=== PATIENT | female | born 1960 | race Caucasian/White ===

== ENCOUNTER 2017-08-18 19:05 | Emergency (ER) | payer OTHER ==
[~2017-08-18] VITALS: Ht 167.6 cm; Wt 88.5 kg
[~2017-08-18 19:05] MED LIST: ALBU.083IS IH; ALBU90OI INH; ALBU90OI6 INH; AMOX500 PO; CEPH500 PO; CODGUAEL PO; CYCL10; CYCL10 PO; Crutch1 EACH MISC; DIVA500EC PO; DULERA; ESCI20 PO; FLUT110OIA IH; HYDACE5 PO; HYDACE5325 PO; IBUP400 PO; IBUP600 PO; LAVAP17G PO; LEVSOD150; LEVSOD150 PO; LORA1 PO; MORP15ER PO; MORP30ER PO; MORP60ER PO; Norco 5-325 Ta1 EACH PO; OMEP10ER PO; OMEP20ER PO; OXYACE5T PO; OXYC10ER PO; OXYC5 PO; PRED10 PO; PRED20 PO; Percocet 5-3251 EACH PO; Prilosec Otc20 MG PO; SERT50 PO; TRIA80TC TOP; VENL25 PO; VENL75ER PO; ZOLP10 PO
[2017-08-18] MEDS ORDERED: ALBU2.5V5 NEB (19:39)
[2017-08-18 19:47] LABS: BASOPHILS ABSOLUTE AUTO 0.06 K/mm3 (0.00-0.23); BASOPHILS PERCENT AUTO 1 % (0-2); EOSINOPHILS ABSOLUTE AUTO 0.08 K/mm3 (0.00-0.68); EOSINOPHILS PERCENT AUTO 2 % (0-6); Hematocrit 42.2 % (33.0-51.0); Hemoglobin 14.6 g/dL (11.5-16.0); IMMATURE GRAN ABSOLUTE AUTO 0.01 K/mm3 (0.00-0.10); IMMATURE GRAN PERCENT AUTO 0 % (0-1); LYMPHOCYTES ABSOLUTE AUTO 1.46 K/mm3 (0.84-5.20); LYMPHOCYTES PERCENT AUTO 28 % (21-46); MONOCYTES ABSOLUTE AUTO 0.41 K/mm3 (0.16-1.47); MONOCYTES PERCENT AUTO 8 % (4-13); Mean Corpuscular HGB 29.4 pg (26.0-34.0); Mean Corpuscular HGB Conc 34.6 g/dL (31.5-36.5); Mean Corpuscular Volume 85 fL (80-100); Mean Platelet Volume 10.1 fL (9.1-12.4); NEUTROPHILS ABSOLUTE AUTO 3.29 K/mm3 (1.96-9.15); NEUTROPHILS PERCENT AUTO 62 % (41-73); Platelet Count 263 K/mm3 (150-400); RDW Coefficient Variation 11.9 % (11.7-14.2); RDW Standard Deviation 36.7 fL (35.1-46.3); Red Blood Cell Count 4.97 M/mm3 (3.80-5.20); White Blood Cell Count 5.31 K/mm3 (4.00-11.30)
[2017-08-18 20:00] LABS: International Normalized Ratio 0.99; Prothrombin Time Results 10.3 Sec (9.7-11.5)
[2017-08-18 20:16] LABS: Alanine Aminotransfer (ALT/SGP 36 U/L (12-78); Albumin, Blood 3.9 g/dL (3.4-5.0); Alk Phos 107 U/L (50-136); Anion Gap 7 mmol/L (6-16); Aspartate Aminotrans (AST/SGOT 28 U/L (12-37); Bilirubin, Total 0.6 mg/dL (0.1-1.0); Blood Urea Nitrogen 12 mg/dL (8-24); Bun/Creatinine Ratio 13.5 (12.0-20.0); CO2, Blood 29 mmol/L (21-32); Calcium, Blood 8.8 mg/dL (8.5-10.1); Chloride, Blood 101 mmol/L (98-108); Creatinine, Blood 0.89 mg/dL (0.40-1.00); Globulin, Blood 3.8 g/dL (2.2-4.0); Glomerular Filtration Rate >60 (60-); Glucose, Blood 100 mg/dL (70-99); Potassium, Blood 3.6 mmol/L (3.5-5.5); Sodium, Blood 137 mmol/L (136-145); Total Protein, Blood 7.7 g/dL (6.4-8.2)
[2017-08-18 20:26] LABS: Influenza A Negative (NEGATIVE); Influenza B Negative (NEGATIVE)
[2017-08-18] MEDS ORDERED: ROBITUSSIN COU237 ML PO (21:11)
[2017-08-18] MEDS ORDERED: LEVO750 PO (21:11)
== END 2017-08-18 21:28 | disposition home or self-care (01) ==
LOC: ER 19:05
PROVIDERS: Physician Assistant
DX: J20.9 Acute bronchitis, unspecified (principal); R07.89 Other chest pain; Z88.2 Allergy status to sulfonamides; Z88.1 Allergy status to other antibiotic agents; Z79.899 Other long term (current) drug therapy; Z79.891 Long term (current) use of opiate analgesic; J44.9 Chronic obstructive pulmonary disease, unspecified; K21.9 Gastro-esophageal reflux disease without esophagitis; F17.200 Nicotine dependence, unspecified, uncomplicated
CPT/HCPCS: 36415; 71046; 80053; 83605; 85025; 85610; 85730; 87040; 87804; 93005; 93010; 96374; 99284; J0456; J1885; J7050

== ENCOUNTER 2017-08-26 07:36 | Emergency (ER) | payer OTHER ==
[~2017-08-26] VITALS: Ht 167.6 cm; Wt 88.5 kg
[~2017-08-26 07:36] MED LIST changes: +ALBU2.5V5 NEB; +LEVO750 PO; +ROBITUSSIN COU237 ML PO
[2017-08-26] MEDS ORDERED: METO50ER PO (08:09)
[2017-08-26] MEDS ORDERED: ATOR10 PO (08:09)
[2017-08-26] MEDS ORDERED: KETO10 PO (10:34)
== END 2017-08-26 10:54 | disposition home or self-care (01) ==
LOC: ER 07:36
DX: S22.20XA Unspecified fracture of sternum, initial encounter for closed fracture (principal); W01.0XXA Fall on same level from slipping, tripping and stumbling without subsequent striking against object, initial encounter; Z88.2 Allergy status to sulfonamides; Z88.1 Allergy status to other antibiotic agents; Z79.899 Other long term (current) drug therapy; Z79.891 Long term (current) use of opiate analgesic; J45.909 Unspecified asthma, uncomplicated; J44.9 Chronic obstructive pulmonary disease, unspecified; K21.9 Gastro-esophageal reflux disease without esophagitis; F17.200 Nicotine dependence, unspecified, uncomplicated
CPT/HCPCS: 36415; 71250; 96374; 96375; 96376; 99284; J1885; J3010

== ENCOUNTER 2017-08-31 17:34 | Emergency (ER) | payer OTHER ==
[~2017-08-31] VITALS: Ht 167.6 cm; Wt 95.2 kg
[~2017-08-31 17:34] MED LIST changes: +ATOR10 PO; +KETO10 PO; +METO50ER PO
[2017-08-31 18:45] LABS: Calcium, Ionized (POC) 1.08 mmol/L (1.10-1.46); Chloride (POC) 99 mmol/L (98-108); Creatinine (POC) 0.9 mg/dL (0.6-1.0); Glucose (ISTAT POC) 96 mg/dL (70-99); Hemoglobin (POC) 10.2 g/dL (12.0-16.0); Potassium (POC) 4.4 mmol/L (3.5-5.5); Sodium (POC) 139 mmol/L (135-148); Total CO2 (POC) 29 mmol/L (21-32)
== END 2017-08-31 19:46 | disposition home or self-care (01) ==
LOC: ER 17:34
PROVIDERS: Emergency Medicine
DX: S22.20XD Unspecified fracture of sternum, subsequent encounter for fracture with routine healing (principal); R60.0 Localized edema; J44.9 Chronic obstructive pulmonary disease, unspecified; K21.9 Gastro-esophageal reflux disease without esophagitis; F17.200 Nicotine dependence, unspecified, uncomplicated; Z88.2 Allergy status to sulfonamides; Z88.1 Allergy status to other antibiotic agents; Z79.899 Other long term (current) drug therapy
CPT/HCPCS: 36415; 71046; 80047; 85014; 93005; 93010; 96374; 99284; J3010

== ENCOUNTER 2018-11-09 09:35 | Emergency (ER) | payer OTHER ==
[~2018-11-09] VITALS: Ht 167.6 cm; Wt 88.5 kg
[2018-11-09] MEDS ORDERED: Zithromax250 MG PO (10:38)
[2018-11-09] MEDS ORDERED: Prednisone20 MG PO (10:39)
== END 2018-11-09 10:44 | disposition home or self-care (01) ==
LOC: ER 09:35
DX: J44.1 Chronic obstructive pulmonary disease with (acute) exacerbation (principal); Z88.2 Allergy status to sulfonamides; Z88.1 Allergy status to other antibiotic agents; Z79.899 Other long term (current) drug therapy; Z79.891 Long term (current) use of opiate analgesic; J45.909 Unspecified asthma, uncomplicated; F17.200 Nicotine dependence, unspecified, uncomplicated
CPT/HCPCS: 71046; 94644; 99283-25; J1100